=== PATIENT | female | born 1960 | race Caucasian/White ===

== ENCOUNTER → 2017-01-28 | Outpatient (CLI) | payer OTHER | LOC: CIMAGING 09:52 | DX: Z12.31 Encounter for screening mammogram for malignant neoplasm of breast (principal); Z85.3 Personal history of malignant neoplasm of breast; Z80.3 Family history of malignant neoplasm of breast | CPT/HCPCS: G0202-52 ==

== ENCOUNTER → 2018-02-04 | Outpatient (CLI) | payer MEDICAID | LOC: CIMAGING 10:18 | PROVIDERS: ATTEND Nurse Practitioner Family | DX: Z12.31 Encounter for screening mammogram for malignant neoplasm of breast (principal); Z85.3 Personal history of malignant neoplasm of breast; Z90.12 Acquired absence of left breast and nipple ==

== ENCOUNTER → 2019-02-20 | Outpatient (CLI) | payer MEDICAID | LOC: CIMAGING 10:23 ==